=== PATIENT | female | born 1965 | race American Indian/Alaskan Native ===

== ENCOUNTER 2016-09-13 18:45 | Inpatient (IN) | payer OTHER ==
[2016-09-13 19:38] LABS: Basophils % (Auto) 1.5 % (0.0-1.8); Eosinophils % (Auto) 3.1 % (0.0-4.3); Hemoglobin 9.7 gm/dl (10.1-14.3); Mean Corpuscular HGB Conc 34 % (30-34); Mean Corpuscular Hemoglobin 30 pg (28-32); Mean Corpuscular Volume 90 fl (79-97); Platelet Count 278 K/mm3 (140-440); Red Blood Count 3.22 M/mm3 (3.65-5.03); Red Cell Distribution Width 15.7 % (13.2-15.2); White Blood Count 8.9 K/mm3 (4.5-11.0)
[2016-09-13 19:48] LABS: INR 0.9 (0.87-1.13)
[2016-09-13 19:49] LABS: Partial Thromboplastin Time 29.9 Sec. (24.2-36.6)
[2016-09-13 19:58] LABS: Anion Gap 20 mmol/L; BUN/Creatinine Ratio 21.66; Blood Urea Nitrogen 26 mg/dL (7-17); Carbon Dioxide 24 mmol/L (22-30); Chloride 98.3 mmol/L (98-107); Glucose 308 mg/dL (65-100); Potassium 4.8 mmol/L (3.6-5.0); Sodium 137 mmol/L (137-145)
[2016-09-13] MEDS ORDERED: ASPIRIN PO ONE (21:48)
--- NOTE | 2016-09-13 22:10 | Emergency Department Report ---
ED Chest Pain HPI - General Chief Complaint: Chest Pain Stated Complaint: CHEST PAIN Time Seen by Provider: 09/13/16 21:39 Source: patient, old records reviewed Mode of arrival: Ambulatory Limitations: No Limitations - History of Present Illness Initial Comments: 51-year-old female the past medical history CHF, diabetes, hypertension and osteosarcoma presents to the hospital complains of intermittent chest pain since 2 PM. Symptoms [place] Patient describes a 6/10 chest tightness with associated shortness of breath and difficulty breathing. No aggravating or alleviating factors reported. She denies nausea, vomiting, or diaphoresis. No calf tenderness, edema, recent travel, history of PE/DVT. Patient compliant with her medications. Mild cough started today but no complaint of fever. Chest pain continues but now more aching and tight. Patient medical record reviewed she had a negative stress test in July 2013 and echocardiogram showing an EF of 45-50%. Her primary doctor in foreclosure field inspector are [place] affiliated. - Related Data Home Medications Medication Instructions Recorded Confirmed Last Taken Aspirin [Aspirin BABY CHEW TAB] 81 mg PO DAILY 08/01/13 08/01/13 08/01/13 08:00 Carvedilol [Coreg] 12.5 mg PO BID 08/01/13 08/01/13 08/01/13 21:00 Furosemide [Lasix] 40 mg PO DAILY 08/01/13 08/01/13 08/01/13 08:00 Lisinopril [Zestril TAB] 10 mg PO DAILY 08/01/13 08/01/13 08/01/13 08:00 Metformin HCl [metFORMIN ER] 500 mg PO BID 08/01/13 08/01/13 08/01/13 18:00 Allergies Allergy/AdvReac Type Severity Reaction Status Date / Time morphine Allergy Itching Verified 08/01/13 22:39 LILY score - Lily Score Age > 65: (0) No Aspirin use within the Past 7 Days: (0) No 3 or more CAD Risk Factors: (1) Yes 2 or more Angina events in past 24 hrs: (1) Yes Known CAD with more than 50% Stenosis: (0) No Elevated Cardiac Markers: (0) No ST Deviation Greater than 0.5mm: (0) No LILY Score: 2 ED Review of Systems ROS: Stated complaint: CHEST PAIN Other details as noted in HPI Comment: All other systems reviewed and negative Other: Constitutional: No fevers chills or weight loss Eyes: No eye pain visual changes or discharge ENT: No ear pain or throat pain Neck: Denies pain Respiratory: Denies cough wheezing Cardiovascular: Denies palpitations, syncope GI: Denies abdominal pain, nausea, vomiting, diarrhea : Denies dysuria, urinary frequency, or urgency Musculoskeletal: Denies back pain, joint swelling Skin: Denies rash, lesions, erythema Neurologic: Denies headache, numbness, weakness Psychiatric: Denies suicidal ideation, hallucinations ED Past Medical Hx - Past Medical History Previous Medical History?: Yes Hx Hypertension: Yes Hx Congestive Heart Failure: Yes Hx Diabetes: Yes Hx Asthma: No Additional medical history: osteosarcoma - Surgical History Past Surgical History?: Yes Additional Surgical History: osteosarcoma - Social History Smoking Status: Never Smoker Substance Use Type: None - Medications Home Medications: Home Medications Medication Instructions Recorded Confirmed Last Taken Type Aspirin [Aspirin BABY CHEW TAB] 81 mg PO DAILY 08/01/13 08/01/13 08/01/13 08:00 History Carvedilol [Coreg] 12.5 mg PO BID 08/01/13 08/01/13 08/01/13 21:00 History Furosemide [Lasix] 40 mg PO DAILY 08/01/13 08/01/13 08/01/13 08:00 History Lisinopril [Zestril TAB] 10 mg PO DAILY 08/01/13 08/01/13 08/01/13 08:00 History Metformin HCl [metFORMIN ER] 500 mg PO BID 08/01/13 08/01/13 08/01/13 18:00 History ED Physical Exam - General Limitations: No Limitations - Other Other exam information: General: No limitations, patient is alert in no acute distress Head exam: Atraumatic, normocephalic Eyes exam: Normal appearance ENT: Moist mucous membrane, normal oropharynx Neck exam: Normal inspection, full range of motion, Respiratory exam: Clear to auscultation bilateral, no wheezes, rales, crackles Cardiovascular: Normal rate and rhythm, normal heart sounds, chest wall nontender Abdomen: Soft, nondistended, and nontender, with normal bowel sounds, no rebound, or guarding Extremity: Full range of motion normal inspection no deformity, no calf tenderness or edema Back: Normal Inspection, full range of motion, no tenderness Neurologic: Alert, oriented x3, cranial nerves intact, no motor or sensory deficit Psychiatric: normal affect, normal mood Skin: Warm, dry, intact ED Course Vital Signs 09/13/16 09/13/16 09/13/16 17:48 17:50 17:56 Temperature Pulse Rate Respiratory Rate Blood Pressure 148/88 158/89 O2 Sat by Pulse 94 95 98 Oximetry 09/13/16 09/13/16 09/13/16 18:00 19:14 19:16 Temperature 98.2 F Pulse Rate 89 Respiratory 18 Rate Blood Pressure 158/89 154/79 154/79 O2 Sat by Pulse 94 98 97 Oximetry 09/13/16 09/13/16 09/13/16 19:20 19:26 19:30 Temperature Pulse Rate Respiratory Rate Blood Pressure 154/79 154/79 154/79 O2 Sat by Pulse 96 97 93 Oximetry 09/13/16 09/13/16 09/13/16 19:36 19:40 19:46 Temperature Pulse Rate Respiratory Rate Blood Pressure 154/79 154/79 154/79 O2 Sat by Pulse 97 96 94 Oximetry 09/13/16 09/13/16 09/13/16 19:50 19:56 20:00 Temperature Pulse Rate Respiratory Rate Blood Pressure 173/100 173/100 173/100 O2 Sat by Pulse 96 87 98 Oximetry 09/13/16 09/13/16 09/13/16 20:06 20:10 21:16 Temperature Pulse Rate Respiratory Rate Blood Pressure 135/77 135/77 135/77 O2 Sat by Pulse 95 95 99 Oximetry 09/13/16 09/13/16 09/13/16 21:21 21:25 21:31 Temperature Pulse Rate 83 80 81 Respiratory 18 15 11 L Rate Blood Pressure 135/77 135/77 135/77 O2 Sat by Pulse 97 99 98 Oximetry 09/13/16 09/13/16 09/13/16 21:35 21:41 21:45 Temperature Pulse Rate 83 87 84 Respiratory 15 22 14 Rate Blood Pressure 135/77 135/77 135/77 O2 Sat by Pulse 97 99 98 Oximetry 09/13/16 09/13/16 09/13/16 21:51 22:01 22:05 Temperature Pulse Rate 89 90 88 Respiratory 22 24 11 L Rate Blood Pressure 135/77 135/77 135/77 O2 Sat by Pulse 97 99 98 Oximetry 0509/13/16 09/13/16 22:11 22:15 22:21 Temperature Pulse Rate 85 83 84 Respiratory 18 14 18 Rate Blood Pressure 135/77 135/77 135/77 O2 Sat by Pulse 97 98 98 Oximetry 09/13/16 09/13/16 09/13/16 22:25 22:31 22:35 Temperature Pulse Rate 82 80 80 Respiratory 9 L 13 11 L Rate Blood Pressure 135/77 135/77 135/77 O2 Sat by Pulse 99 98 98 Oximetry 09/13/16 09/13/16 09/13/16 22:41 22:45 22:51 Temperature Pulse Rate 78 83 77 Respiratory 8 L 16 12 Rate Blood Pressure 135/77 135/77 135/77 O2 Sat by Pulse 98 98 97 Oximetry 09/13/16 09/13/16 09/13/16 22:55 23:00 23:05 Temperature Pulse Rate 78 78 77 Respiratory 17 11 L 13 Rate Blood Pressure 135/77 147/80 147/80 O2 Sat by Pulse 98 95 97 Oximetry 09/13/16 09/13/16 09/13/16 23:11 23:15 23:21 Temperature Pulse Rate 81 80 79 Respiratory 14 17 16 Rate Blood Pressure 147/80 147/80 147/80 O2 Sat by Pulse 97 96 97 Oximetry - Reevaluation(s) Reevaluation #1: 09/14/16 pt given asa in ed ED Medical Decision Making - Lab Data Result diagrams: 09/13/16 19:29 09/13/16 19:22 Lab Results 09/13/16 09/13/16 09/13/16 Range/Units 19:22 19:22 19:29 WBC 8.9 (4.5-11.0) K/mm3 RBC 3.22 L (3.65-5.03) M/mm3 Hgb 9.7 L (10.1-14.3) gm/dl Hct 29.0 L (30.3-42.9) % MCV 90 (79-97) fl MCH 30 (28-32) pg MCHC 34 (30-34) % RDW 15.7 H (13.2-15.2) % Plt Count 278 (140-440) K/mm3 Lymph % (Auto) 25.2 (13.4-35.0) % [place] % (Auto) 7.7 H (0.0-7.3) % Eos % (Auto) 3.1 (0.0-4.3) % Baso % (Auto) 1.5 (0.0-1.8) % Lymph # 2.2 (1.2-5.4) K/mm3 Boyle # 0.7 (0.0-0.8) K/mm3 Eos # 0.3 (0.0-0.4) K/mm3 Baso # 0.1 (0.0-0.1) K/mm3 Seg Neutrophils % 62.5 (40.0-70.0) % Seg Neutrophils # 5.6 (1.8-7.7) K/mm3 PT 12.0 L (12.2-14.9) Sec. INR 0.90 (0.87-1.13) APTT 29.9 (24.2-36.6) Sec. Sodium 137 (137-145) mmol/L Potassium 4.8 (3.6-5.0) mmol/L Chloride 98.3 (98-107) mmol/L Carbon Dioxide 24 (22-30) mmol/L Anion Gap 20 mmol/L BUN 26 H (7-17) mg/dL Creatinine 1.2 (0.7-1.2) mg/dL Estimated GFR 57 ml/min BUN/Creatinine Ratio 21.66 % Glucose 308 H (65-100) mg/dL Calcium 10.0 (8.4-10.2) mg/dL Troponin T < 0.010 (0.00-0.029) ng/mL 09/13/16 Range/Units 22:08 WBC (4.5-11.0) K/mm3 RBC (3.65-5.03) M/mm3 Hgb (10.1-14.3) gm/dl Hct (30.3-42.9) % MCV (79-97) fl MCH (28-32) pg MCHC (30-34) % RDW (13.2-15.2) % Plt Count (140-440) K/mm3 Lymph % (Auto) (13.4-35.0) % Boy[place] % (Auto) (0.0-7.3) % Eos % (Auto) (0.0-4.3) % Baso % (Auto) (0.0-1.8) % Lymph # (1.2-5.4) K/mm3 Boyle # (0.0-0.8) K/mm3 Eos # (0.0-0.4) K/mm3 Baso # (0.0-0.1) K/mm3 Seg Neutrophils % (40.0-70.0) % Seg Neutrophils # (1.8-7.7) K/mm3 PT (12.2-14.9) Sec. INR (0.87-1.13) APTT (24.2-36.6) Sec. Sodium (137-145) mmol/L Potassium (3.6-5.0) mmol/L Chloride (98-107) mmol/L Carbon Dioxide (22-30) mmol/L Anion Gap mmol/L BUN (7-17) mg/dL Creatinine (0.7-1.2) mg/dL Estimated GFR ml/min BUN/Creatinine Ratio % Glucose (65-100) mg/dL Calcium (8.4-10.2) mg/dL Troponin T < 0.010 (0.00-0.029) ng/mL - EKG Data -: EKG Interpreted by Me (nsr rate 89 nonspecific t wave) - EKG Data When compared to previous EKG there are: no significant change (compared to 08/02) - Radiology Data Radiology results: image reviewed (cxr: naf) - Medical Decision Making Pain is not pleuritic in nature and is described as a tightness. Presents to the cardiac risk factors. Initial EKG and cardiac enzymes without any acute abnormality. We'll admit the hospital further cardiac testing. - Differential Diagnosis mi, pe, atypical cp, angina, chf Critical Care Time: No Critical care attestation.: If time is entered above; I have spent that time in minutes in the direct care of this critically ill patient, excluding procedure time. ED Disposition Clinical Impression: Chest tightness, HTN (hypertension), Diabetes, CHF (congestive heart failure) Disposition: OP ADMITTED IP TO THIS HOSP Is pt being admited?: Yes Condition: Stable Time of Disposition: 22:07
--- NOTE | 2016-09-13 23:00 | History and Physical Report ---
History of Present Illness Date of examination: 09/13/16 Chief complaint: Chest pain History of present illness: Patient is a 51-year-old woman with a history of CHF with a reported EF of approx 30% (sees Dr. Galicia [facility]), type 2 diabetes mellitus, hypertension and osteosarcoma who presents with sudden onset of moderately intense nonradiating substernal chest tightness that started while she was walking today associated with severe dyspnea on exertion up a flight of steps. Chest pain was constant, lasting more than 30 minutes aggravated by activity and relieved with rest. She has a mild non productive cough. Chest x-ray pending. Past History Past Medical History: other (as hpi) Past Surgical History: Other (Bone graft and right leg surgery for right leg osteosarcoma. ) Social history: full code. denies: smoking, alcohol abuse, prescription drug abuse, IV drug use Family history: diabetes (father), hypertension (father) Medications and Allergies Allergies Allergy/AdvReac Type Severity Reaction Status Date / Time morphine Allergy Itching Verified 08/01/13 22:39 Home Medications Medication Instructions Recorded Confirmed Last Taken Type Aspirin [Aspirin BABY CHEW TAB] 81 mg PO DAILY 08/01/13 08/01/13 08/01/13 08:00 History Carvedilol [Coreg] 12.5 mg PO BID 08/01/13 08/01/13 08/01/13 21:00 History Furosemide [Lasix] 40 mg PO DAILY 08/01/13 08/01/13 08/01/13 08:00 History Lisinopril [Zestril TAB] 10 mg PO DAILY 08/01/13 08/01/13 08/01/13 08:00 History Metformin HCl [metFORMIN ER] 500 mg PO BID 08/01/13 08/01/13 08/01/13 18:00 History Active Meds: Active Medications Aspirin (Baby Aspirin) 81 mg PO DAILY MARISA Carvedilol (Coreg) 12.5 mg PO BID MARISA Furosemide (Lasix) 40 mg PO DAILY MARISA Heparin Sodium (Porcine) (Heparin) 5,000 unit SUB-Q Q8HR MARISA Lisinopril (Zestril) 10 mg PO DAILY MARISA Miscellaneous Medication (Metformin Hcl [Metformin Er]) 500 mg PO BID MARISA Review of Systems All systems: negative (as HPI and all other ROS reviewed and negative.) Exam - Physical Exam Narrative exam: GEN: WDWN, NAD, AWAKE, ALERT, ORIENTATED 3 HEENT: NCAT, PERRL, EOMI, OP CLEAR NECK: SUPPLE, NO THYROMEGALY, NO JVD, NO LAD CVS: RRR, NORMAL S1S2 LUNGS/CHEST: CTA B, NORMAL CHEST EXPANSION B, GOOD AIR ENTRY B, reproducible substernal chest wall tenderness with touch ABD: SOFT NTND, GBS, NO REBOUND OR GUARDING EXT/SKIN: NO SIGNIFICANT EDEMA OR RASH MSK: FROM X 4 EXTREMITIES NEURO: CN 2-12 GROSSLY INTACT, NO new FOCAL DEFICITS PSY: CALM - Constitutional Vitals: Temp Pulse Resp BP Pulse Ox 98.2 F 89 18 160/91 99 09/13/16 19:16 09/13/16 19:16 09/13/16 19:16 09/13/16 19:16 09/13/16 19:16 Results - Labs CBC & Chem 7: 09/13/16 19:29 09/13/16 19:22 Labs: Abnormal lab results 09/13/16 09/13/16 09/13/16 Range/Units 19:22 19:22 19:29 RBC 3.22 L (3.65-5.03) M/mm3 Hgb 9.7 L (10.1-14.3) gm/dl Hct 29.0 L (30.3-42.9) % RDW 15.7 H (13.2-15.2) % [place] % (Auto) 7.7 H (0.0-7.3) % PT 12.0 L (12.2-14.9) Sec. BUN 26 H (7-17) mg/dL Glucose 308 H (65-100) mg/dL - Imaging and Cardiology EKG: image reviewed Assessment and Plan Patient is a 51-year-old woman with a history of CHF with a reported EF of approx 30% (sees Dr. Galicia [facility]), type 2 diabetes mellitus, hypertension and osteosarcoma who presents with sudden onset of moderately intense nonradiating substernal chest tightness that started while she was walking today associated with severe dyspnea on exertion up a flight of steps. Chest pain was constant, lasting more than 30 minutes aggravated by activity and relieved with rest. She has a mild non productive cough. Chest x-ray pending. -Chest pain, with high risk factor for coronary artery disease: Serial cardiac enzymes, Stress test a.m. -Diabetes mellitus2, chronic and uncontrolled: Continue metformin, add sliding- scale, if stress test positive then stop metformin for cardiac catheterization -Hypertension, chronic and worsening: Restart home medication -DVT prophylaxis: Subcutaneous heparin
[2016-09-14] MEDS ORDERED: D50W (25GM) IV PRN (00:28)
[2016-09-14 01:24] LABS: Creatine Kinase MB 2.7 ng/mL (0.0-4.0)
[2016-09-14 01:26] LABS: Creatine Kinase 129 units/L (30-135)
[2016-09-14] MEDS ORDERED: NITROSTAT SL PRN (05:38)
[2016-09-14] MEDS ORDERED: GLUCOPHAGE XR PO SCH (08:00)
[2016-09-14] MEDS ORDERED: LEXISCAN IV ONE ×2 (08:02→08:30)
[2016-09-14 08:19] LABS: Hematocrit 26.4 % (30.3-42.9); Hemoglobin 8.8 gm/dl (10.1-14.3); Mean Corpuscular HGB Conc 34 % (30-34); Mean Corpuscular Hemoglobin 30 pg (28-32); Mean Corpuscular Volume 90 fl (79-97); Platelet Count 251 K/mm3 (140-440); Red Blood Count 2.94 M/mm3 (3.65-5.03); Red Cell Distribution Width 15.6 % (13.2-15.2); White Blood Count 10.1 K/mm3 (4.5-11.0)
[2016-09-14 08:33] LABS: Anion Gap 18 mmol/L; Blood Urea Nitrogen 20 mg/dL (7-17); Calcium 9.5 mg/dL (8.4-10.2); Carbon Dioxide 23 mmol/L (22-30); Chloride 103.5 mmol/L (98-107); Glucose 173 mg/dL (65-100); Potassium 4.4 mmol/L (3.6-5.0); Sodium 140 mmol/L (137-145)
--- NOTE | 2016-09-14 09:23 | XRay Report ---
ROUTINE CHEST, TWO VIEWS: HISTORY: Shortness of breath, hypertension. The trachea, heart, mediastinal contour, lung waters and bony thorax are unremarkable. IMPRESSION: No acute cardiopulmonary process appreciated.
[2016-09-14] MEDS ORDERED: COREG PO SCH (10:00)
[2016-09-14] MEDS ORDERED: ZESTRIL PO SCH (10:00)
[2016-09-14] MEDS ORDERED: BABY ASPIRIN PO SCH (10:00)
[2016-09-14] MEDS ORDERED: LASIX PO SCH (10:00)
[2016-09-14] MEDS: NOVOLOG SUB-Q SCH ×2 (10:35→13:59)
[2016-09-14 10:37] VITALS: BP 124/66
--- NOTE | 2016-09-14 11:07 | Event Note ---
Date: 09/14/16 Nuclear stress test completed. No complications. Stress test negative for significant ischemia. Low risk for signficant coronary artery disease. EF 60%.
--- NOTE | 2016-09-14 11:37 | Discharge Summary ---
Providers - Providers Date of Admission: 09/13/16 22:36 Date of discharge: 09/14/16 Attending physician: CORINE ABRAHAM Primary care physician: MANAGER CARDIAC Hospitalization Reason for admission: left-sided chest pain Condition: Stable Pertinent studies: Chest x-ray; no acute cardiopulmonary abnormality noted Nuclear stress test; negative for reversible ischemia Left ventricle ejection fraction 60% Hospital course: Final diagnosis; Atypical chest pain Costochondritis Gastroesophageal reflux disease Hypertension Type 2 diabetes mellitus Brief history and hospital course; 51-year-old female patient significant past medical history of hypertension type 2 diabetes mellitus congestive heart failure with reported ejection fraction of 30% follows with splicing technician Dr. Galicia from [facility] patient was admitted through emergency room with chest pain patient was initially evaluated and assessed admitted to the hospital symptomatically managed subsequently underwent nuclear stress test which was negative for reversible ischemia and ejection fraction was 60% patient was symptomatically managed symptoms significantly improved chest pain may be probably secondary to gastroesophageal reflux disease and costochondritis patient was symptomatically managed today she is comfortable in bed alert awake oriented 3 denies any chest pain palpitations [id number] evaluation physical examination done by me prior to discharge is unremarkable as detailed below Hemodynamically and clinically stable for discharge and will follow with primary care physician and splicing technician within 1 week Disposition: DISCHARGED TO HOME OR SELFCARE Time spent for discharge: 31 min Core Measure Documentation - Palliative Care Palliative Care/ Comfort Measures: Not Applicable - Core Measures Any of the following diagnoses?: none Exam - Constitutional Vitals: Temp Pulse Resp BP Pulse Ox 99 F 87 20 124/66 99 09/14/16 05:26 09/14/16 10:33 09/14/16 05:26 09/14/16 10:33 09/14/16 05:26 General appearance: Present: no acute distress, well-nourished - EENT Eyes: Present: PERRL, EOM intact - Neck Neck: Present: supple, normal ROM - Respiratory Respiratory effort: normal Respiratory: negative: rales, rhonchi, wheezing - Cardiovascular Rhythm: regular Heart Sounds: Present: S1 & S2 - Extremities Extremities: no ischemia, pulses intact, pulses symmetrical Peripheral Pulses: within normal limits - Abdominal General gastrointestinal: Present: soft, non-tender, non-distended, normal bowel sounds - Integumentary Integumentary: Present: clear, warm - Musculoskeletal Musculoskeletal: strength equal bilaterally - Psychiatric Psychiatric: appropriate mood/affect, cooperative - Neurologic Neurologic: CNII-XII intact, moves all extremities Plan Activity: no restrictions Diet: low salt, diabetic Follow up with: PRIMARY CARE, [Primary Care Provider] - 7 Days Prescriptions: Famotidine [Pepcid] 20 mg PO BID #20 tablet
[2016-09-14] MEDS ORDERED: PNEUMOVAX 23 IM ONE (12:00)
--- NOTE | 2016-09-14 17:40 | Admit Criteria Form ---
Admission Criteria Documentation: CHEST PAIN Clinical Indications for Admission to Inpatient Care (Place 'X' for any and all applicable criteria): Admission is indicated for chest pain and ANY ONE of the following(1)(2)(3)(4)(5 ): [ ]I. Angina with acute coronary syndrome (Also use Myocardial Infarction or Angina guideline) [ ]II. Hemodynamic instability [ ]III. Angina needing acute intervention as indicated by ALL of the following( 11)(12): [ ]a) Unstable angina is present as indicated by angina that is ANY ONE of the following: [ ]i) New onset [ ]ii) Nocturnal [ ]iii) Prolonged at rest [ ]iv) Progressive [ ]b) Angina warrants acute intervention as indicated by ANY ONE of the following: [ ]i) Recurrent angina (e.g, not responding as previously to treatment) [ ]ii) Angina at rest or with low-level activities despite initial medical therapy [ ]iii) New or presumably new ST-segment depression on ECG [ ]iv) Signs or symptoms of heart failure (eg, dyspnea, pulmonary edema) [ ]v) New or worsening mitral regurgitation [ ]vi) Hemodynamic instability [ ]vii) Dangerous arrhythmia (eg, sustained ventricular tachycardia) [ ]viii) History of percutaneous coronary intervention within 6 months [ ]ix) History of coronary artery bypass graft surgery [ ]x) LILY risk score of 2 or greater[A] [ ]xi) History of Diabetes(14) [ ]xii) High-risk cardiac ischemia findings on noninvasive testing (e.g, echocardiogram, treadmill testing, nuclear scan) [ ]xiii) Chronic renal insufficiency (ie, estimated GFR less than 60 mL/min/1.732m) [ ]xiv) Left ventricular ejection fraction less than 40% [ ]IV. Evidence of SD (eg, cardiac biomarkers positive, ST-segment elevation on ECG) also use Myocardial Infarction Criteria Form. [ ]V. Pulmonary edema [ ]. Respiratory distress [ ]VII. Chest pain indicative of serious diagnosis other than coronary artery disease (eg, aortic dissection) [ ]VIII. Contraindications and/or Inappropriate clinical situations for Observational Care in patients with Chest Pain, when ANY ONE of the following is required: [ ]a) Patient with risk factor for pulmonary embolism, acute coronary syndrome and myocardial infarction (18) [ ]b) Patient with Pulmonary embolism require an average LOS of 4.3 days, therefore emergency department observation management is inappropriate 18,23 [ ]c) Painful condition/s in the elderly, have the highest rate of recidivism after emergency department observation management (10.8%) 20,21,22 [ ]d) Elevated cardiac biomarker requires intensive and exhaustive care (19) [ X]IX. General contraindications and/or Inappropriate clinical situations for Observational Care in patients with Chest Pain, when ANY ONE of the following is required: [X ]a) Prediction of prolongation of LOS based on ANY ONE of the following may be considered as a contraindication for observational care 2, 3, 4, 5, 6, 7, 8, 9, 10, 11 [ ]i) Age > 65 yrs. [ ]ii) Patient arriving by ambulance [ ]iii) Patient with high acuity [X ]iv) Patient requiring vital sign monitoring [ ]v) Patient on IV medication [ ]b) Systolic blood pressures 180mmHg 3,12 [ ]c) Patient with altered mental status including delirium and other alteration of consciousness, (3) [ ]d) Patient whose discharge disposition will be to a longterm home or rehabilitation home should not be managed in Emergency Department Observation Unit. CMS rule requires 3 days hospital stay before such placement. 3,13 [ ]e) Patient with failure to thrive due to broad array of etiologies 3,16,17 [ ]f) Inability to ambulate 3,14 Extended stay beyond goal length of stay may be needed for (1)(28): [ ]a) Specific condition diagnosed after evaluation (eg, pulmonary embolism, aortic dissection) [ ]b) Unstable angina [ ]c) Continued suspicion of acute coronary syndrome with inability to complete needed cardiac evaluation (eg, patient clinically unable to undergo stress testing) [ ]d) Myocardial infarction (Contents from ANGINA and CHEST PAIN clinical indications for admission to inpatient care have been integrated in this form) The original [employer] content created by [employer] has been revised. The portions of the content which have been revised are identified through the use of italic text or in bold, and [facility] [employer] has neither reviewed nor approved the modified material. All other unmodified content is copyright [employer] [facility]. Please see references footnoted in the original [employer] [facility] edition 2016 Admission Criteria Met: Yes
[2016-09-14] MEDS ORDERED: HEPARIN SUB-Q SCH (22:00)
--- NOTE | 2016-09-16 03:53 | Treadmill Report ---
THALLIUM STRESS TEST LEFT VENTRICLE: Left ventricular chamber size is within normal. Perfusion study demonstrates homogeneous uptake of the tracer in all segments, no significant perfusion defects identified. Gated analysis demonstrates normal left ventricular systolic function, ejection fraction of 60%. CONCLUSION: Normal myocardial perfusion study. JOB# [id number] CA/NTS
== END 2016-09-14 16:04 | disposition home or self-care (01) | DRG 206 ==
LOC: ED 18:45 → 4A 22:36
PROVIDERS: ADMIT Internal Medicine; ATTEND Internal Medicine
DX: M94.0 Chondrocostal junction syndrome [Tietze] (principal); I11.0 Hypertensive heart disease with heart failure; I50.9 Heart failure, unspecified; K21.9 Gastro-esophageal reflux disease without esophagitis; E11.9 Type 2 diabetes mellitus without complications; Z79.82 Long term (current) use of aspirin; Z88.5 Allergy status to narcotic agent; Z83.3 Family history of diabetes mellitus; Z82.49 Family history of ischemic heart disease and other diseases of the circulatory system
CPT/HCPCS: 36415; 71020; 78452; 80048; 82550; 82553; 82962; 84484; 85025; 85027; 85610; 85730; 90732; 93005; 93010; 93017; A9502; J2785

== ENCOUNTER 2018-12-05 12:10 | Emergency (ER) | payer OTHER ==
--- NOTE | 2018-12-05 12:37 | Event Note ---
ED Screening Note Date of service: 12/05/18 Time: 12:33 ED Screening Note: This is a 53 y.o. F. that presents to the ER with SOB x 1 week. PMH of CHF, DM, osteosarcoma, & HTN This initial assessment/diagnostic orders/clinical plan/treatment(s) is/are subject to change based on patients health status, clinical progression and re- assessment by fellow clinical providers in the ED. Further treatment and workup at subsequent clinical providers discretion. Patient/guardian urged not to elope from the ED as their condition may be serious if not clinically assessed and managed. Initial orders include: Labs and CXR
[2018-12-05] MEDS ORDERED: CATAPRES PO ONE (13:10)
--- NOTE | 2018-12-05 13:51 | XRay Report ---
CHEST 2 VIEWS INDICATION / CLINICAL INFORMATION: SOB. COMPARISON: Chest x-ray 09/13/2016 FINDINGS: SUPPORT DEVICES: None. HEART / MEDIASTINUM: No significant abnormality. LUNGS / PLEURA: No significant pulmonary or pleural abnormality. No pneumothorax. ADDITIONAL FINDINGS: No significant additional findings. IMPRESSION: 1. No acute findings. Signer Name: Irving Gardner MD Signed: 12/05/2018 1:47 PM Workstation Name: [id number]
[2018-12-05 13:53] LABS: Basophils # (Auto) 0.1 K/mm3 (0.0-0.1); Basophils % (Auto) 1.3 % (0.0-1.8); Eosinophils # (Auto) 0.2 K/mm3 (0.0-0.4); Eosinophils % (Auto) 2.7 % (0.0-4.3); Hematocrit 37.1 % (30.3-42.9); Hemoglobin 12.5 gm/dl (10.1-14.3); Lymphocytes # (Auto) 1.3 K/mm3 (1.2-5.4); Lymphocytes % (Auto) 22.2 % (13.4-35.0); Mean Corpuscular HGB Conc 34 % (30-34); Mean Corpuscular Volume 92 fl (79-97); Monocytes # (Auto) 0.5 K/mm3 (0.0-0.8); Monocytes % (Auto) 8.7 % (0.0-7.3); Platelet Count 228 K/mm3 (140-440); Red Blood Count 4.03 M/mm3 (3.65-5.03); Red Cell Distribution Width 15.2 % (13.2-15.2)
[2018-12-05 14:18] LABS: Albumin 4.3 g/dL (3.9-5); Calcium 10.4 mg/dL (8.4-10.2)
[2018-12-05] MEDS ORDERED: LASIX PO ONE (14:27)
--- NOTE | 2018-12-05 14:41 | Emergency Department Report ---
ED Shortness of Breath HPI - General Chief Complaint: Dyspnea/Respdistress Stated Complaint: SOB Time Seen by Provider: 12/05/18 12:33 Source: patient Mode of arrival: Ambulatory Limitations: No Limitations - History of Present Illness Initial Comments: Patient is a 53-year-old female with past history of congestive heart failure diabetes and hypertension who is complaining of shortness of breath for approximately one week. Patient states shortness of breath is worse with exertion and better with rest. She has had a minimal dry cough. Patient denies any fevers chills nausea vomiting diarrhea. Patient states is been no chest pain. Patient does state that sometimes when she is walking and getting short of breath chest does feel "sore". - Related Data Home Medications Medication Instructions Recorded Confirmed Last Taken Aspirin [Aspirin BABY CHEW TAB] 81 mg PO DAILY 08/01/13 08/01/13 08/01/13 08:00 Carvedilol [Coreg] 12.5 mg PO BID 08/01/13 08/01/13 08/01/13 21:00 Furosemide [Lasix] 40 mg PO DAILY 08/01/13 08/01/13 08/01/13 08:00 Lisinopril [Zestril TAB] 10 mg PO DAILY 08/01/13 08/01/13 08/01/13 08:00 Metformin HCl [metFORMIN ER] 500 mg PO BID 08/01/13 08/01/13 08/01/13 18:00 Previous Rx's Medication Instructions Recorded Last Taken Type Famotidine [Pepcid] 20 mg PO BID #20 tablet 09/14/16 Unknown Rx Allergies Allergy/AdvReac Type Severity Reaction Status Date / Time morphine Allergy Itching Verified 12/05/18 12:33 ED Review of Systems ROS: Stated complaint: SOB Other details as noted in HPI Comment: All other systems reviewed and negative ED Past Medical Hx - Past Medical History Hx Hypertension: Yes Hx Congestive Heart Failure: Yes Hx Diabetes: Yes Hx Asthma: No Additional medical history: osteosarcoma - Surgical History Past Surgical History?: Yes Additional Surgical History: osteosarcoma, right knee replacement - Social History Smoking Status: Never Smoker Substance Use Type: None - Medications Home Medications: Home Medications Medication Instructions Recorded Confirmed Last Taken Type Aspirin [Aspirin BABY CHEW TAB] 81 mg PO DAILY 08/01/13 08/01/13 08/01/13 08:00 History Carvedilol [Coreg] 12.5 mg PO BID 08/01/13 08/01/13 08/01/13 21:00 History Furosemide [Lasix] 40 mg PO DAILY 08/01/13 08/01/13 08/01/13 08:00 History Lisinopril [Zestril TAB] 10 mg PO DAILY 08/01/13 08/01/13 08/01/13 08:00 History Metformin HCl [metFORMIN ER] 500 mg PO BID 08/01/13 08/01/13 08/01/13 18:00 History Famotidine [Pepcid] 20 mg PO BID #20 tablet 09/14/16 Unknown Rx ED Physical Exam - General Limitations: No Limitations General appearance: alert, in no apparent distress - Head Head exam: Present: atraumatic, normocephalic - Eye Eye exam: Present: normal appearance. Absent: PERRL, EOMI - ENT ENT exam: Present: mucous membranes moist - Neck Neck exam: Present: normal inspection - Respiratory Respiratory exam: Present: normal lung sounds bilaterally. Absent: respiratory distress, wheezes, rales, rhonchi - Cardiovascular Cardiovascular Exam: Present: regular rate, normal rhythm. Absent: systolic murmur, diastolic murmur, rubs, gallop - GI/Abdominal GI/Abdominal exam: Present: soft, normal bowel sounds. Absent: distended, tenderness, guarding, rebound - Extremities Exam Extremities exam: Present: normal inspection - Back Exam Back exam: Present: normal inspection - Neurological Exam Neurological exam: Present: alert, oriented X3 - Psychiatric Psychiatric exam: Present: normal affect, normal mood - Skin Skin exam: Present: warm, dry, intact, normal color. Absent: rash ED Course Vital Signs 12/05/18 12/05/18 12:33 14:05 Temperature 97.8 F Pulse Rate 85 80 Respiratory 16 Rate Blood Pressure 158/83 Blood Pressure 170/84 [Right] O2 Sat by Pulse 97 Oximetry ED Medical Decision Making - Lab Data Result diagrams: 12/05/18 13:20 12/05/18 13:20 Lab Results 12/05/18 12/05/18 12/05/18 Range/Units 13:20 13:20 13:20 WBC 5.9 (4.5-11.0) K/mm3 RBC 4.03 (3.65-5.03) M/mm3 Hgb 12.5 (10.1-14.3) gm/dl Hct 37.1 (30.3-42.9) % MCV 92 (79-97) fl MCH 31 (28-32) pg MCHC 34 (30-34) % RDW 15.2 (13.2-15.2) % Plt Count 228 (140-440) K/mm3 Lymph % (Auto) 22.2 (13.4-35.0) % [place] % (Auto) 8.7 H (0.0-7.3) % Eos % (Auto) 2.7 (0.0-4.3) % Baso % (Auto) 1.3 (0.0-1.8) % Lymph # 1.3 (1.2-5.4) K/mm3 [place] # 0.5 (0.0-0.8) K/mm3 Eos # 0.2 (0.0-0.4) K/mm3 Baso # 0.1 (0.0-0.1) K/mm3 Seg Neutrophils % 65.1 (40.0-70.0) % Seg Neutrophils # 3.8 (1.8-7.7) K/mm3 Sodium 138 (137-145) mmol/L Potassium 4.8 (3.6-5.0) mmol/L Chloride 98.8 (98-107) mmol/L Carbon Dioxide 23 (22-30) mmol/L Anion Gap 21 mmol/L BUN 32 H (7-17) mg/dL Creatinine 1.2 (0.7-1.2) mg/dL Estimated GFR 57 ml/min BUN/Creatinine Ratio 27 % Glucose 262 H (65-100) mg/dL Calcium 10.4 H (8.4-10.2) mg/dL Total Bilirubin 0.40 (0.1-1.2) mg/dL AST 34 (5-40) units/L ALT 32 (7-56) units/L Alkaline Phosphatase 151 H (35-129) units/L Troponin T < 0.010 (0.00-0.029) ng/mL NT-Pro-B Natriuret Pep 5045 H (0-900) pg/mL Total Protein 8.5 H (6.3-8.2) g/dL Albumin 4.3 (3.9-5) g/dL Albumin/Globulin Ratio 1.0 % - EKG Data -: EKG Interpreted by [facility] - EKG Data 12/05/18 14:38 EKG shows sinus rhythm rate of 83 normal axis normal intervals no ST segment elevations or depressions. There are T-wave inversions laterally and flattening of the T waves in the inferior leads. - Radiology Data [facility] [address] [place] [address] XRay Report Signed Patient: FIORELLA RIVAS MR#: [id number] : 1965 Acct:[id number] Age/Sex: 53 / F ADM Date: 12/05/18 Loc: ED Attending Dr: Ordering Physician: RADHA SOTELO Date of Service: 12/05/18 Procedure(s): XR chest routine 2V Accession Number(s): [id number] cc: RADHA SOTELO Fluoro Time In Minutes: CHEST 2 VIEWS INDICATION / CLINICAL INFORMATION: SOB. COMPARISON: Chest x-ray 09/13/2016 FINDINGS: SUPPORT DEVICES: None. HEART / MEDIASTINUM: No significant abnormality. LUNGS / PLEURA: No significant pulmonary or pleural abnormality. No pneumothorax. ADDITIONAL FINDINGS: No significant additional findings. IMPRESSION: 1. No acute findings. Signer Name: Irving Gardner MD Signed: 12/05/2018 1:47 PM Workstation Name: [id number] Transcribed By: TL Dictated By: Irving Gardner MD Electronically Authenticated By: Irving Gardner MD Signed Date/Time: 12/05/18 1347 DD/ 1346 TD/TT: - Medical Decision Making Patient's does have elevated BNP and is asymptomatic at baseline and at rest but with exertion she is becoming very short of breath. Patient likely developed some early congestive heart failure type changes. Patient's will be started on double dose of Lasix for the next 3 days but is stable for discharge. Patient does admit to eating fried chicken several times in the last week. This likely is contributing to her elevated blood pressure and mild heart failure exacerbation. Dietary counseling has been done. Critical care attestation.: If time is entered above; I have spent that time in minutes in the direct care of this critically ill patient, excluding procedure time. ED Disposition Clinical Impression: Mild congestive heart failure, Hypertensive urgency Disposition: DC-01 TO HOME OR SELFCARE Is pt being admited?: No Does the pt Need Aspirin: No Condition: Stable Instructions: Heart Failure (ED) Additional Instructions: Please take a double dose of your Lasix for the next 3 days and then continue your normal regimen Referrals: TAYLER KRUEGER MD [Primary Care Provider] - 3-5 Days Time of Disposition: 14:40
[2018-12-05 15:15] VITALS: BP 169/84
== END 2018-12-05 15:15 | disposition home or self-care (01) ==
LOC: ED 12:10
DX: I16.0 Hypertensive urgency (principal); I11.0 Hypertensive heart disease with heart failure; I50.9 Heart failure, unspecified; E11.9 Type 2 diabetes mellitus without complications; Z96.651 Presence of right artificial knee joint; Z85.830 Personal history of malignant neoplasm of bone; Z79.899 Other long term (current) drug therapy; Z88.6 Allergy status to analgesic agent
CPT/HCPCS: 36415; 71046; 80053; 83880; 84484; 85025; 93005; 93010